=== PATIENT | female | born 1965 | race Asian ===

== ENCOUNTER → 2021-08-15 | Outpatient (CLI) | payer OTHER ==
--- NOTE | 2021-08-15 16:37 | RAD ---
EXAM: MRI RIGHT SHOULDER WITHOUT CONTRAST INDICATION: Right shoulder pain, decreased range of motion COMPARISON: None TECHNIQUE: Multiplanar, multisequence imaging of the right shoulder without contrast. FINDINGS: ROTATOR CUFF: There is moderate tendinopathy of the posterior supraspinatus and anterior infraspinatu s tendons. Mild bursal fraying of the anterior supraspinatus tendon. No full-thickness rotator cuff t ear. The subscapularis tendon is intact. Teres minor tendon is intact. No rotator cuff muscle atrophy or edema.. LABRUM: The labrum is intact. BICEPS TENDON: There is intra-articular biceps tendinopathy.. ACROMIOCLAVICULAR JOINT: Mild acromioclavicular degenerative joint disease. Type I acromion. GLENOHUMERAL JOINT: Cartilage is intact.. OTHER: Small joint effusion. No definite bursitis. IMPRESSION: 1. Supraspinatus and infraspinatus tendinopathy with bursal fraying of the anterior supraspinatus ten dinopathy. 2. Intra-articular biceps tendinopathy. 3. Small joint effusion. Electronically signed by: Alida Sol MD (08/15/2021 4:35 PM) [id number]
== END ==
LOC: MRI 09:03
PROVIDERS: ATTEND Orthopaedic Surgery
DX: M19.011 Primary osteoarthritis, right shoulder (principal); M25.411 Effusion, right shoulder; M25.811 Other specified joint disorders, right shoulder
CPT/HCPCS: 73221